=== PATIENT | male | born 1990 | race Caucasian/White ===

== ENCOUNTER 2016-05-10 11:54 | Emergency (ER) | payer MEDICAID, OTHER ==
[~2016-05-10] VITALS: Wt 72.0 kg
[2016-05-10 14:38] LABS: URINE BLOOD (Dip) POC Negative (NEGATIVE)
[2016-05-10 15:10] LABS: ADD SCAN DIFF NO
[2016-05-10 15:17] LABS: BASOPHILS % 0.3 % (0.0-2.0); EOSINOPHILS # 0.3 10^3/ul (0.0-0.5); EOSINOPHILS % 2.9 % (0.0-7.0); HEMATOCRIT 44.4 % (42.0-52.0); HEMOGLOBIN 15.5 g/dl (14.0-18.0); LYMPHOCYTES # 2.9 10^3/ul (0.8-2.9); LYMPHOCYTES % 28.3 % (15.0-51.0); MEAN CORPUSCULAR HEMOGLOBIN 31.3 pg (29.0-33.0); MEAN CORPUSCULAR HGB CONC 34.9 g/dl (32.0-37.0); MEAN CORPUSCULAR VOLUME 89.5 fl (82.0-101.0); MEAN PLATELET VOLUME 10.2 fl (7.4-10.4); MONOCYTES % 9.9 % (0.0-11.0); NEUTROPHIL # 5.9 10^3/ul (1.6-7.5); NEUTROPHILS % 58.2 % (39.0-77.0); PLATELET COUNT 293 10^3/UL (140-415); RED BLOOD COUNT 4.96 10^6/ul (4.70-6.10); RED CELL DISTRIBUTION WIDTH 11.6 % (11.5-14.5); WHITE BLOOD COUNT 10.1 10^3/ul (4.8-10.8)
--- NOTE | 2016-05-10 15:24 | RADRPT ---
PROCEDURE: XR Chest. CLINICAL INDICATION: chest pain TECHNIQUE: Single AP view of the chest were obtained COMPARISON: None FINDINGS: The heart is moderately enlarged. There are low lung volumes. The pulmonary vasculature are unremar kable. The aorta is grossly unremarkable. There is mild left basilar atelectasis and the lungs are otherwise clear. There is no acute osseous abnormality. IMPRESSION: Cardiomegaly. Low lung volumes with mild left basilar atelectasis. RPTAT: AA .Hai Walsh MD, Date Time Electronically viewed and signed by .Hai Walsh MD, on 05/10/2016 15:24 .J/
[2016-05-10 15:25] LABS: CHLORIDE 104 mmol/L (97-110)
[2016-05-10 15:26] LABS: POTASSIUM 4.3 mmol/L (3.5-5.1); SODIUM 143 mmol/L (135-144)
[2016-05-10 15:28] LABS: CREATININE 0.81 mg/dl (0.61-1.24)
[2016-05-10 15:29] LABS: ANION GAP 18 (8-16); BLOOD UREA NITROGEN 18 mg/dl (7-20); CALCIUM 9.5 mg/dl (8.4-10.2); CARBON DIOXIDE 25 mmol/L (21-31); GLUCOSE 89 mg/dl (70-220)
[2016-05-10 15:47] LABS: TROPONIN-I < 0.012 ng/ml (0.00-0.12)
[2016-05-10 15:48] LABS: BARBITURATES Negative (NEGATIVE); BENZODIAZEPINES Negative (NEGATIVE); CANNABINOIDS Negative (NEGATIVE); COCAINE Negative (NEGATIVE); OPIATES Negative (NEGATIVE)
[2016-05-10 15:49] LABS: INR 0.9; PROTIME 12.1 Sec (12.2-14.2); PT RATIO 0.9
[2016-05-10 15:50] LABS: PARTIAL THROMBOPLASTIN TIME 32.4 Sec (25.0-35.0)
--- NOTE | 2016-05-10 16:14 | RADRPT ---
PROCEDURE: CT Head without. CLINICAL INDICATION: Syncope, head trauma. TECHNIQUE: The study was performed utilizing a multi-slice, multidetector CT scanner. Direct spira l 1 mm axial sections were obtained through the head without the use of intravenous contrast materia l. 1 or more of the following dose reduction techniques were utilized: Automated exposure control, adjustment of the mA and/or kV according to patient's size, iterative reconstruction technique. Co steve and sagittal reformations were obtained. The images were reviewed on a PACS workstation. RADIATION DOSE: CTDIvol: 45.0 mGyDLP: 720.2 mGy-cm COMPARISON: No prior studies are available for comparison. FINDINGS: There is no intracranial hemorrhage, extra-axial fluid collection, mass lesion, midline shift or hyd rocephalus. The ventricles, sulci and cisterns are within normal limits. There is mild right ventr icular asymmetry, the right ventricle being slightly larger than the left, within normal limits. No evidence of hydrocephalous. The white matter is unremarkable. The raymond-white matter differentiati on is preserved. The basal cisterns are patent. The midline structures are intact. The orbits, ca lvarium and extracranial soft tissues are normal in appearance. The visualized paranasal sinuses, ma stoid air cells and middle ear cavities are normally aerated. IMPRESSION: 1. No acute intracranial abnormality. No intracranial hemorrhage, extra-axial fluid collection, ma ss lesion or hydrocephalous. RPTAT: HGAS .Jd Johns MD, MD Date Time Electronically viewed and signed by .Jd Johns MD, on 05/10/2016 16:14 .S/
--- NOTE | 2016-05-10 16:38 | RADRPT ---
PROCEDURE: Noncontrast CT facial bones. CLINICAL INDICATION: Trauma. Injury. Syncope. TECHNIQUE: Noncontrast CT of the facial bones was obtained. Coronal and sagittal re-formations were provided. The administered radiation dose was CTDI vol = 29.42 mGy, DLP = 526.65 mGy-cm. One or mo re of the following dose reduction techniques were used: Automated exposure control, Adjustment of t he mA and/or kV according to patient size, or Use of iterative reconstruction technique. COMPARISON: There are no similar studies submitted for comparison. FINDINGS: OSSEOUS STRUCTURES: There is no acute fracture.No destructive osseous lesion is identified.There are torus mandibularis which is a normal variant. ORBITS: The bilateral globes are intact.There is no orbital hematoma. SINUSES: The paranasal sinuses are well aerated. SKULL: Please refer to the CT of the head report from the same day. IMPRESSION: 1. No acute fracture. 2. The bilateral globes are intact without orbital hematoma. Further findings as detailed above. RPTAT: PP .Eron Sanches MD, MD Date Time Electronically viewed and signed by .Eron Sanches MD, on 05/10/2016 16:38 .F/
--- NOTE | 2016-05-10 16:56 | ERD ---
ER Documentation Chief Complaint Date/Time DATE: 05/10/16 TIME: 16:54 Chief Complaint HEAD INJURY AND KNEE PAIN FROM A FALL. NO NEURO DEFICIT HPI This is a 25-year-old male who presents to the emergency room after he hit his right knee against a table. The patient states that he was having a lot of pain and as he was bending forward he felt dizzy and states that he thinks he passed out. The patient came to the ER for evaluation. Patient is denying any shortness of breath or palpitations or chest pain. He does say he has a mild headache. ROS All systems reviewed and are negative except as per history of present illness. Medications Home Meds No Active Prescriptions or Reported Meds Allergies Allergies: Coded Allergies: No Known Allergy (Unverified , 05/10/16) PMhx/Soc History of Surgery: No Anesthesia Reaction: No Hx Neurological Disorder: No Hx Respiratory Disorders: No Hx Cardiac Disorders: No Hx Psychiatric Problems: No Hx Miscellaneous Medical Probl: No Hx Alcohol Use: No Hx Substance Use: No Hx Tobacco Use: No Smoking Status: Never smoker Physical Exam Vitals Vital Signs Date Time Temp Pulse Resp B/P Pulse Ox O2 Delivery O2 Flow Rate FiO2 05/10/16 11:58 98.8 88 20 138/67 99 Physical Exam INITIAL VITAL SIGNS: Reviewed by me GENERAL: The patient is well developed and appropriate for usual state of health in no apparent distress HEENT: Pupils equal, round, and reactive to light. EOMI. There is no scleral icterus. NECK: C-spine is soft and supple, there is no meningismus. There is no cervical lymphadenopathy. LUNGS: Clear to auscultation bilaterally. There are no rales, wheezes or rhonchi. HEART: Regular rate and rhythm, no murmurs, clicks, rubs or gallops. ABDOMEN: Soft, non-tender, non-distended. There are bowel sounds in all four quadrants. No rebound or guarding. EXTREMITIES: There is no peripheral cyanosis or edema. No focal swelling or erythema. NEUROLOGICAL: The patient moves all four extremities with 5/5 strength. Cranial nerves II - XII are intact. Normal gait. Alert and oriented SKIN: There is no apparent rash or petechiae. HEME/LYMPHATIC: There is no evidence of excessive bruising or lymphedema. PSYCHIATRIC: The patient does not appear anxious or depressed. Result Diagram: 05/10/16 1500 05/10/16 1500 Results 24 hrs Laboratory Tests Test 05/10/16 14:31 05/10/16 14:37 05/10/16 15:00 Bedside Glucose 109mg/dL Bedside Urine Blood Negative Bedside Urine Glucose (UA) Negative Bedside Urine Ketones (LAB) Negative Bedside Urine Leukocyte Esterase (L Negative Bedside Urine Nitrite (LAB) Negative Bedside Urine Protein (LAB) Negative Bedside Urine pH (LAB) 5.5 Activated Partial Thromboplast Time 32.4Sec Anion Gap 18 Basophils # 0.010^3/ul Basophils % 0.3% Blood Urea Nitrogen 18mg/dl Calcium Level 9.5mg/dl Carbon Dioxide Level 25mmol/L Chloride Level 104mmol/L Creatinine 0.81mg/dl Eosinophils # 0.310^3/ul Eosinophils % 2.9% Glucose Level 89mg/dl Hematocrit 44.4% Hemoglobin 15.5g/dl INR International Normalized Ratio 0.90 Lymphocytes # 2.910^3/ul Lymphocytes % 28.3% Mean Corpuscular Hemoglobin 31.3pg Mean Corpuscular Hemoglobin Concent 34.9g/dl Mean Corpuscular Volume 89.5fl Mean Platelet Volume 10.2fl Monocytes # 1.010^3/ul Monocytes % 9.9% Neutrophils # 5.910^3/ul Neutrophils % 58.2% Nucleated Red Blood Cells # 0.010^3/ul Nucleated Red Blood Cells % 0.0/100WBC Platelet Count 45805^3/UL Potassium Level 4.3mmol/L Prothrombin Time 12.1Sec Prothrombin Time Ratio 0.9 Red Blood Count 4.9610^6/ul Red Cell Distribution Width 11.6% Sodium Level 143mmol/L Troponin I < 0.012ng/ml Urine Amphetamines Screen Negative Urine Barbiturates Negative Urine Benzodiazepines Screen Negative Urine Cannabinoids Negative Urine Cocaine Screen Negative Urine Opiates Screen Negative White Blood Count 10.110^3/ul Procedures/MDM EKG: #1 Rate/Rhythm: [Normal Sinus Rhythm] QRS, ST, T-waves: [No changes consistent w/ acute ischemia] Impression: [No evidence of ischemia or arrhythmia] EKG: #2 Rate/Rhythm: [Normal Sinus Rhythm] QRS, ST, T-waves: [No changes consistent w/ acute ischemia] Impression: [No evidence of ischemia or arrhythmia] Chest X-ray 1V Interpreted by me: Soft Tissue: No acute abnormalities Bones: No acute abnormalities Mediastinum/Cardiac Silhouette/Lungs: [No acute abnormalities] CT head and face: No fractures, no bleeds, no stroke This 25-year-old male presents to the emergency room for evaluation of a possible syncopal episode after hitting his knee and having a lot of pain. When I evaluated this patient I did see an EKG and the computer read his EKG has ST elevation AR. I was not convinced that this is a patient had no chest pain and has a heart score of 0. Repeat EKG did show the same however this patient again was in no pain. I did obtain lab work including a troponin which is normal. I do feel his EKG findings are normal variant for this patient. CT of the head and face are within normal limits. Patient was given Tylenol for headache and will be discharged home with a prescription for [place] for breakthrough pain. Departure Diagnosis: Primary Impression: Pre-syncope Additional Impressions: Headache Closed head injury Condition: Stable RITO VELIZ DO May 10, 2016 16:56
[2016-05-10] MEDS ORDERED: HYDR-906 PO (16:57)
== END 2016-05-10 17:23 | disposition home or self-care (01) ==
LOC: FTE 11:54 → E/R 17:23
DX: R55 Syncope and collapse (principal); R51 Headache; S09.90XA Unspecified injury of head, initial encounter; W01.190A Fall on same level from slipping, tripping and stumbling with subsequent striking against furniture, initial encounter; Y92.9 Unspecified place or not applicable
CPT/HCPCS: 36415; 70450; 70486; 71010; 80048; 80307; 81003; 82962; 84484; 85025; 85610; 85730; 93005; Z7502